=== PATIENT | male | born 1975 | race Caucasian/White ===

== ENCOUNTER 2019-02-11 12:59 | Emergency (ER) | payer OTHER ==
[~2019-02-11] VITALS: Ht 188 cm; Wt 79.4 kg
--- NOTE | 2019-02-11 12:59 | NUR ---
Patient BIBA BLS, transferred to bed 12. RN evaluating patient at bedside.
[2019-02-11 13:03] VITALS: BP 162/84
--- NOTE | 2019-02-11 13:38 | NUR ---
COVERING PRIMARY RN FOR LUNCH RELIEF PT TO ED FOR C/O BODY CRAMPING X 2 HRS. PT REPORTS SUDDEN ONSET OF CRAMPING WHILE EATING. DENIES N/V/D. DENIES CP/SOB. DENIES INJURY. PT IN BED, PENDING MD BATEMAN.
--- NOTE | 2019-02-11 14:20 | NUR ---
DR KIRK AT BEDSIDE FOR PT EVALUATION
[2019-02-11] MEDS ORDERED: KETOROLAC 60 MG/2 ML VIAL IM ONE (14:25)
--- NOTE | 2019-02-11 15:00 | NUR ---
BLOOD DRAW OBTAINED ORDERED, SENT TO LAB
[2019-02-11 15:15] LABS: BASOPHILS % (AUTO) 0.5 % (0.0-2.0); EOSINOPHILS % (AUTO) 0.5 % (0.0-4.0); HEMATOCRIT 41.4 % (36-52); LYMPHOCYTES % (AUTO) 13.5 % (20.5-51.1); MEAN CORPUSCULAR HEMOGLOBIN 33 pg (27-31); MEAN CORPUSCULAR HGB CONC 34 g/dL (33-37); MEAN CORPUSCULAR VOLUME 97.9 fL (80-94); MONOCYTES # (AUTO) 0.5 K/uL (0.8-1.0); MONOCYTES % (AUTO) 6.9 % (1.7-9.3); NEUTROPHILS # (AUTO) 5.8 K/uL (1.8-7.7); NEUTROPHILS % (AUTO) 78.6 % (42.2-75.2); PLATELET COUNT (AUTO) 279 K/uL (140-450); RED BLOOD CELL COUNT(AUTO) 4.22 MIL/uL (4.20-6.10); RED CELL DISTRIBUTION WIDTH 14.7 % (11.6-13.7); WHITE BLOOD COUNT (AUTO) 7.4 K/uL (4.8-10.8)
[2019-02-11 15:26] LABS: ANION GAP 12.7 (8-16); CARBON DIOXIDE 26.5 mmol/L (21-32); POTASSIUM 3.2 mmol/L (3.5-5.1)
[2019-02-11] MEDS ORDERED: POTASSIUM CHLORIDE 10 MEQ TABER PO ONE (15:35)
[2019-02-11 16:10] VITALS: BP 125/64
--- NOTE | 2019-02-11 16:10 | NUR ---
Patient discharged with v/s stable. Written and verbal after care instructions given and explained. Patient verbalized understanding. Ambulatory with steady gait. All questions addressed prior to discharge. Advised to follow up with PMD.
== END 2019-02-11 16:00 | disposition home or self-care (01) ==
LOC: MED 12:59
DX: R25.2 Cramp and spasm (principal); E87.6 Hypokalemia; F17.200 Nicotine dependence, unspecified, uncomplicated; R42 Dizziness and giddiness; R06.02 Shortness of breath; R41.0 Disorientation, unspecified
CPT/HCPCS: 36415; 80048; 81002; 85025; 96372; 99283; J1885